=== PATIENT | female | born 1980 | race American Indian/Alaskan Native ===

== ENCOUNTER 2018-08-06 17:43 | Emergency (ER) | payer MEDICAID, OTHER ==
[2018-08-06 17:49] VITALS: BMI 23.6
[2018-08-06] MEDS ORDERED: Amoxicillin-Clav 875-125 mg Tab PO STA (18:29)
[2018-08-06] MEDS ORDERED: Amoxicillin-Clav 875-125 mg Tab PO ONE (18:39)
[2018-08-06 18:43] VITALS: BP 102/64; PULSE 77; RESP 16; TEMP 98.2; O2SAT 95
--- NOTE | 2018-08-07 00:28 | C.PDOC ---
History Of Present Illness 37 y/o female with PMH of HTN and Diabetes presents to the ED c/o sore throat and right ear pain x 4 days. Pain is gradually worsening, associated right sided lymphadenopathy. Denies sick contacts, recent travel. No fevers, chills, vomiting, diarrhea, abdominal pain, headache, neck pain/stiffness, dizziness, vision changes. cough, congestion, chest pain, SOB, or any other associated symptoms. Time Seen by Provider: 08/06/18 17:54 Chief Complaint (Nursing): ENT Problem Past Medical History Vital Signs: Last Vital Signs Temp 98.2 F 08/06/18 18:42 Pulse 77 08/06/18 18:42 Resp 16 08/06/18 18:42 BP 102/64 08/06/18 18:42 Pulse Ox 95 08/06/18 18:42 - Medical History PMH: Back Problems, Bipolar Disorder, Diabetes, HTN Denies: Depression, Chronic Kidney Disease - [facility] Procedures CLOSURE SKIN & SUBCUTANEOUS NEC (11/06/13) INJECT/INFUSE NEC (03/05/15) TETANUS TOXOID ADMINIST (11/06/13) Family History: States: Unknown Family Hx - Social History Hx Tobacco Use: No Hx Alcohol Use: No Hx Substance Use: No - Immunization History Hx Tetanus Toxoid Vaccination: No Hx Influenza Vaccination: No Hx Pneumococcal Vaccination: No Review Of Systems Constitutional: Negative for: Fever, Chills Eyes: Negative for: Vision Change ENT: Positive for: Ear Pain, Throat Pain. Negative for: Ear Discharge Cardiovascular: Negative for: Chest Pain, Palpitations, Light Headedness Respiratory: Negative for: Cough, Shortness of Breath Gastrointestinal: Negative for: Nausea, Vomiting, Abdominal Pain, Diarrhea Musculoskeletal: Negative for: Neck Pain, Back Pain Skin: Negative for: Rash Neurological: Negative for: Weakness, Numbness, Headache, Dizziness Physical Exam - Physical Exam Appears: Well, Non-toxic, No Acute Distress Skin: Normal Color, Warm, Dry Head: Atraumatic, Normacephalic Eye(s): bilateral: Normal Inspection, PERRL, EOMI Ear(s): Left: Normal, Right: TM Erythema, TM Dull, Other (canal erythematous and mildly swollen; no mastoid tenderness or bogginess) Nose: Normal Oral Mucosa: Moist Throat: Normal, No Erythema, No Exudate Neck: Normal ROM, Supple, No Other (no meningeal signs) Lymphatic: Adenopathy (right anterior cervical tender and swollen) Cardiovascular: Rhythm Regular Respiratory: Normal Breath Sounds Extremity: Normal ROM, Capillary Refill (<2s) Pulses: Left Radial: Normal, Right Radial: Normal Neurological/Psych: Oriented x3, Normal Speech, Normal Motor, Normal Sensation Gait: Steady ED Course And Treatment O2 Sat by Pulse Oximetry: 95 Medical Decision Making Medical Decision Making: Initial Plan: * Rapid Strep * Augmentin * Ibuprofen Rapid strep negative. Advised PMD followup within 2 days. Diagnostic testing results and plan of care discussed with patient. Strict instructions given regarding prescription use, importance of followup, and signs/symptoms to return to ER including worsening pain, difficulty breathing, abdominal pain, or any other new/worsening symptoms. Pt verbalized understanding of discussion. Patient is A&Ox3, ambulating with steady gait, with vital signs stable for discharge. Disposition - Disposition Referrals: [facility] at [facility] [Outside] Disposition: HOME/ ROUTINE Disposition Time: 18:30 Condition: STABLE Additional Instructions: Augmentin every 12 hours for 10 days Ear drops 10 drops in right ear daily for 7 days Rest, no strenuous activity Followup with primary doctor within 2 days Return to ER with any new/worsening symptoms Prescriptions: Amoxicillin/Clavulanate [Augmentin 875 MG-125 MG] 1 tab PO Q12 10 Days #20 tab Ibuprofen [Motrin Tab] 600 mg PO Q8 #30 tab Ofloxacin Otic 0.3% [Floxin 0.3% Otic Soln] 10 drop AD DAILY 7 Days #1 bottle Instructions: Ear Infections (Otitis Media), Sore Throat, Adult (DC) Forms: [facility] (Uzbek), Work Excuse - Clinical Impression Clinical Impression: Otitis media, Otitis externa, Sore throat
== END 2018-08-06 18:49 | disposition home or self-care (01) ==
LOC: C.ER 17:43
DX: J02.9 Acute pharyngitis, unspecified (principal); H66.91 Otitis media, unspecified, right ear; H60.91 Unspecified otitis externa, right ear; Z87.891 Personal history of nicotine dependence

== ENCOUNTER 2018-08-31 16:41 | Emergency (ER) | payer MEDICAID ==
[2018-08-31 16:42] VITALS: BMI 23.6
[2018-08-31 17:07] VITALS: RESP 18; TEMP 98
--- NOTE | 2018-08-31 17:52 | C.PDOC ---
History Of Present Illness 38 y/o female, with history of diabetes type 2, presents to the ED complaining of right knee pain since 3 days ago. Patient states that she was entering the car when she hit her right knee on the back of the passenger seat. She rates the pain 9/10, worsens with bending the knee. She notes that pain is better at rest or when standing straight. Patient reports taking tylenol and ibuprofen with no relief. Also mentions icing the joint when it was first injured. Denies paresthesia, weakness, or injury to any other joints. Patient is ambulating with a limp. Chief Complaint (Nursing): Lower Extremity Problem/Injury History Per: Patient History/Exam Limitations: no limitations Onset/Duration Of Symptoms: Days Current Symptoms Are (Timing): Still Present Past Medical History Reviewed: Historical Data, Nursing Documentation, Vital Signs Vital Signs: Last Vital Signs Temp 98 F 08/31/18 16:49 Pulse 88 08/31/18 16:49 Resp 18 08/31/18 16:49 BP 126/80 08/31/18 16:49 Pulse Ox 99 08/31/18 16:49 - Medical History PMH: Back Problems, Bipolar Disorder, Diabetes, HTN Denies: Depression, Chronic Kidney Disease - [facility] Procedures CLOSURE SKIN & SUBCUTANEOUS NEC (11/06/13) INJECT/INFUSE NEC (03/05/15) TETANUS TOXOID ADMINIST (11/06/13) Family History: States: No Known Family Hx - Social History Hx Tobacco Use: Yes Hx Alcohol Use: Yes Hx Substance Use: No - Immunization History Hx Tetanus Toxoid Vaccination: No Hx Influenza Vaccination: No Hx Pneumococcal Vaccination: No Review Of Systems Constitutional: Negative for: Fever, Chills Cardiovascular: Negative for: Chest Pain Respiratory: Negative for: Cough, Shortness of Breath Gastrointestinal: Negative for: Nausea, Vomiting Genitourinary: Negative for: Dysuria, Hematuria Musculoskeletal: Positive for: Other (Right Knee Pain). Negative for: Back Pain Neurological: Negative for: Weakness, Numbness, Other (paresthesia) Physical Exam - Physical Exam Appears: Well, Non-toxic, No Acute Distress Skin: Normal Color, Warm, Dry Head: Atraumatic, Normacephalic Eye(s): bilateral: Normal Inspection Nose: No Flaring Oral Mucosa: Moist Neck: Normal ROM, Supple Extremity: Normal ROM (Full ROM of the R knee), Tenderness (right knee tender to touch medially; neurovascularly intact), No Pedal Edema, No Calf Tenderness, Capillary Refill (less than 2 seconds), No Swelling, Other (no ecchymosis or erythema) Extremity: Bilateral: Normal Color And Temperature Pulses: Left Dorsalis Pedis: Normal, Right Dorsalis Pedis: Normal Neurological/Psych: Oriented x3, Normal Speech, Normal Motor, Normal Sensation Gait: Other (Limp) ED Course And Treatment O2 Sat by Pulse Oximetry: 99 (RA) Pulse Ox Interpretation: Normal Medical Decision Making Medical Decision Making: Plan: --Right Knee XR- neg for fracture or dislocation --Toradol 30 mg IM d/w patient results Start Naproxen twice a day for knee pain Rest, Ice, Compression, and Elevation Follow up with Ortho in 1-2 days for possible MRI Return to ED if symptoms worsens patient verbalized understanding and is in agreement with plan patient is stable for discharge Disposition - Disposition Referrals: Mireya Jacobs MD [Staff Provider] - Landen Holliday MD [Staff Provider] - Disposition: HOME/ ROUTINE Disposition Time: 18:15 Condition: IMPROVED Additional Instructions: Start Naproxen twice a day for knee pain Rest, Ice, Compression, and Elevation Follow up with Ortho in 1-2 days for possible MRI Return to ED if symptoms worsens Prescriptions: Naproxen [Naprosyn] 500 mg PO BID #30 tablet Instructions: Muscle Strain (DC), Knee Pain (DC) Forms: [facility] (Chinese) - Clinical Impression Clinical Impression: Knee pain, Muscle strain - PA / FLOOR FRAMER / Resident Statement MD/DO has reviewed & agrees with the documentation as recorded. - Scribe Statement The provider has reviewed the documentation as recorded by the Scribe Shena Mike All medical record entries made by the Pakoibshakila were at my direction and personally dictated by me. I have reviewed the chart and agree that the record accurately reflects my personal performance of the history, physical exam, medical decision making, and the department course for this patient. I have also personally directed, reviewed, and agree with the discharge instructions and disposition.
--- NOTE | 2018-08-31 18:05 | C.PDOC ---
Chief Complaint (Nursing): Lower Extremity Problem/Injury Past Medical History Vital Signs: Last Vital Signs Temp 98 F 08/31/18 16:49 Pulse 88 08/31/18 16:49 Resp 18 08/31/18 16:49 BP 126/80 08/31/18 16:49 Pulse Ox 99 08/31/18 16:49 - Medical History PMH: Back Problems, Bipolar Disorder, Diabetes, HTN Denies: Depression, Chronic Kidney Disease - [facility] Procedures CLOSURE SKIN & SUBCUTANEOUS NEC (11/06/13) INJECT/INFUSE NEC (03/05/15) TETANUS TOXOID ADMINIST (11/06/13) Family History: States: Unknown Family Hx - Social History Hx Tobacco Use: No Hx Alcohol Use: Yes Hx Substance Use: No - Immunization History Hx Tetanus Toxoid Vaccination: No Hx Influenza Vaccination: No Hx Pneumococcal Vaccination: No ED Course And Treatment O2 Sat by Pulse Oximetry: 99 Disposition Counseled Patient/Family Regarding: Studies Performed, Diagnosis, Need For Followup, Rx Given - Disposition Referrals: Landen Holliday MD [Staff Provider] - Mireya Jacobs MD [Staff Provider] - Disposition: HOME/ ROUTINE Disposition Time: 18:06 Condition: IMPROVED Additional Instructions: Start Naproxen twice a day for knee pain Rest, Ice, Compression, and Elevation Follow up with Ortho in 1-2 days for possible MRI Return to ED if symptoms worsens Prescriptions: Naproxen [Naprosyn] 500 mg PO BID #30 tablet Instructions: Muscle Strain (DC), Knee Pain (DC) - Clinical Impression Clinical Impression: Knee pain, Muscle strain
[2018-08-31 18:42] VITALS: BP 127/72; PULSE 68
[2018-09-01 00:14] VITALS: O2SAT 99
--- NOTE | 2018-09-01 09:04 | RAD ---
Date of service: The 08/31/2018 PROCEDURE: Right Knee Radiographs. HISTORY: s/p trauma COMPARISON: None. FINDINGS: BONES: Normal. No fracture. JOINTS: Normal. No osteoarthritis. JOINT EFFUSION: None. OTHER FINDINGS: None. IMPRESSION: Normal radiographs of the right knee.
== END 2018-08-31 18:42 | disposition home or self-care (01) ==
LOC: C.ER 16:41
DX: S86.911A Strain of unspecified muscle(s) and tendon(s) at lower leg level, right leg, initial encounter (principal); W22.09XA Striking against other stationary object, initial encounter; Y92.810 Car as the place of occurrence of the external cause; M25.561 Pain in right knee
CPT/HCPCS: 73562; 81025; 96372; 99285; J1885